=== PATIENT | male | born 1960 | race African-American/Black ===

== ENCOUNTER 2021-08-07 16:54 | Emergency (ER) | payer OTHER ==
[~2021-08-07] VITALS: Ht 177.8 cm; Wt 95.0 kg
[2021-08-07] MEDS ORDERED: HYDROCODONE/ACETAMINOPHEN 5/325MG TABLET PO ONE (18:00)
[2021-08-07] MEDS ORDERED: METHOCARBAMOL 500MG TABLET PO ONE (18:45)
[2021-08-07] MEDS ORDERED: HYDR-4001 MT (19:30)
[2021-08-07] MEDS ORDERED: METH-653 MT (19:30)
[2021-08-07 21:40] VITALS: BP 153/98
== END 2021-08-07 22:08 | disposition home or self-care (01) ==
LOC: ER 16:54
DX: S83.094A Other dislocation of right patella, initial encounter (principal); S83.91XA Sprain of unspecified site of right knee, initial encounter; I10 Essential (primary) hypertension; E78.00 Pure hypercholesterolemia, unspecified; W10.8XXA Fall (on) (from) other stairs and steps, initial encounter; Y93.89 Activity, other specified; Y92.39 Other specified sports and athletic area as the place of occurrence of the external cause; Y99.8 Other external cause status
CPT/HCPCS: 73560; 99283; L1830; Z7610